=== PATIENT | female | born 1995 | race Caucasian/White ===

== ENCOUNTER 2017-03-07 08:38 | Day surgery (SDC) | payer BC ==
[~2017-03-07] VITALS: Ht 165.1 cm; Wt 43.0 kg
[2017-03-07] VITALS (18 sets, daily range): BP systolic 75–107; BP diastolic 40–66; PULSE 60–100; RESP 14–31; Ht 165.1 cm; Wt 43.0 kg
[~2017-03-07 08:38] MED LIST: DIPH12.561 PO
[2017-03-07] MEDS ORDERED: MIDAZOLAM 1 MG/ML 2 ML INJ ONE (10:43)
[2017-03-07] MEDS ORDERED: PROPOFOL 20 ML ONE ×2 (11:00)
[2017-03-07] MEDS ORDERED: LIDOCAINE 2% (SDV) 5 ML INJ ONE ×2 (11:00)
[2017-03-07] MEDS ORDERED: FAMOTIDINE 20 MG INJ IV SCH (11:00)
[2017-03-07] MEDS ORDERED: METOCLOPRAMIDE 10 MG INJ ONE (11:01)
--- NOTE | 2017-03-07 11:41 | GILP ---
DATE OF PROCEDURE: Kathleen Bonilla is a patient with chronic abdominal pain, chronic vomiting, nausea. Has been hospitali zed in the past for that with many emergency room visits for her symptoms and when she was off the m etoclopramide for a few days she would start to throw up again. This is ____ status of her esophage al issue and condition in her stomach. She also has early satiety and poor weight gain and currentl y weighs on 95 pounds at this age. PREOPERATIVE DIAGNOSES: 1. Poor weight gain. 2. Chronic epigastric pain. 3. Chronic nausea and vomiting despite medication. POSTOPERATIVE DIAGNOSES: 1. Hiatal hernia. 2. Esophageal ulcer. 3. Poor weight gain. DESCRIPTION OF PROCEDURE: Anesthesia was required because of her high anxiety. Then, we went ahead and started the procedure after anesthesia was given. The pediatric upper scope was passed through the oropharyngeal area under direct vision into the distal esophagus. EG junction was wide open. E sophageal ulcer was noted. The ____ protrusion of gastric papilla into the distal esophagus was see n. Like in the past, she also has a lot of white patches or plaques in her distal esophagus. The s tomach appeared to be normal. Pylorus was not exactly that tight. When I went to the duodenum, she had a duodenal ulcer-like lesion at the junction between the bulb and the second part of the duoden um. Biopsies were taken near this area. When I came back up to the stomach and retroflexed the scop e, esophageal mucosa was seen bulging into the cardia of the stomach. The EG junction was patulous. I came back up into the distal esophagus and did biopsy above the Z-line. Hiatal hernia was also s een intermittently. PLAN: For the patient is to: 1. Start her back on all her medications including metoclopramide. Potential side effects of metoc lopramide has been discussed in the past and the patient did not appear to have any complications fr om this. We ended up giving her a dose of metoclopramide before she went to recovery and the H2 blo cker will also be given in the recovery room. 2. ____ biopsy. 3. I will discuss all this with the patient and her mother. Dictated By: BUTCH HANSEN/DOUGLAS Conf#: [id number] [facility]#: [id number]
== END 2017-03-07 12:37 | disposition home or self-care (01) ==
LOC: SDS 08:38
PROVIDERS: ATTEND Specialist
DX: K44.9 Diaphragmatic hernia without obstruction or gangrene (principal); K22.10 Ulcer of esophagus without bleeding
CPT/HCPCS: 43239; 88305; J2250; J2765; Z7512; Z7610

== ENCOUNTER 2017-07-03 13:46 | Emergency (ER) | payer SELFPAY ==
[~2017-07-03] VITALS: Ht 152.4 cm; Wt 42.0 kg
[2017-07-03 13:49] VITALS: Ht 152.4 cm; Wt 42.0 kg
== END 2017-07-03 15:05 | disposition left against medical advice (07) ==
LOC: FTE 13:46
DX: Z53.21 Procedure and treatment not carried out due to patient leaving prior to being seen by health care provider (principal)

== ENCOUNTER 2018-03-24 16:10 | Emergency (ER) | END 2018-03-24 22:04 | disposition home or self-care (01) ==

== ENCOUNTER 2018-03-25 17:17 | Emergency (ER) | END 2018-03-25 21:10 | disposition home or self-care (01) ==

== ENCOUNTER 2018-04-09 13:46 | Emergency (ER) | END 2018-04-09 18:11 | disposition home or self-care (01) ==

== ENCOUNTER 2018-07-09 09:05 | Day surgery (SDC) | END 2018-07-09 11:25 | disposition home or self-care (01) ==

== ENCOUNTER 2018-08-22 16:33 | Emergency (ER) | END 2018-08-22 19:21 | disposition home or self-care (01) ==

== ENCOUNTER 2018-08-24 14:51 | Emergency (ER) | END 2018-08-24 16:49 | disposition home or self-care (01) ==

== ENCOUNTER 2018-09-06 21:22 | Inpatient (IN) | END 2018-09-10 17:16 | disposition home or self-care (01) | DRG 392 ==

== ENCOUNTER 2018-10-06 14:46 | Emergency (ER) | END 2018-10-06 17:55 | disposition home or self-care (01) ==

== ENCOUNTER 2019-06-29 07:19 | Day surgery (SDC) | payer BC ==
[~2019-06-29] VITALS: Ht 167.6 cm; Wt 41.2 kg
[~2019-06-29 07:19] MED LIST changes: +ACET325T33 PO; +AMIT10TA6 PO; +AMOX500C2 PO; +CLAR500T PO; +DEPO-PROVERA; -DIPH12.561 PO; +FAMO20TA18 PO; +METR500T PO; +ONDA4TAB14 PO; +PANT40TA4 PO; +RANI150T5 PO; +TRAM50TA2 PO
[2019-06-29 07:49] VITALS: Ht 167.6 cm; Wt 41.2 kg
[2019-06-29 08:10] VITALS: BP 109/62; PULSE 73; RESP 15
[2019-06-29] MEDS ORDERED: LIDOCAINE 2% (SDV) 5 ML INJ ONE (08:12)
[2019-06-29] MEDS ORDERED: PROPOFOL 40 ML ONE (08:12)
[2019-06-29 09:20] VITALS: BP 113/73; PULSE 66; RESP 18
== END 2019-06-29 09:23 | disposition home or self-care (01) ==
LOC: GIL 07:19
PROVIDERS: ATTEND Internal Medicine Gastroenterology
DX: D12.8 Benign neoplasm of rectum (principal)
CPT/HCPCS: 45380; 84703; Z7610; 88305

== ENCOUNTER 2019-07-05 18:55 | Emergency (ER) | payer BC ==
[~2019-07-05] VITALS: Ht 167.6 cm; Wt 41.1 kg
[~2019-07-05 18:55] MED LIST changes: -ACET325T33 PO; -AMIT10TA6 PO; -AMOX500C2 PO; -CLAR500T PO; +ETHI1TAB22 ORAL; -FAMO20TA18 PO; +IBUP-1542 PO; +KETO10TA ORAL; +LOPE-123 PO; +METO10TA92 PO; -METR500T PO; +NAPR-985 PO; +ONDA4TAB14 ORAL; -PANT40TA4 PO; -RANI150T5 PO; -TRAM50TA2 PO
[2019-07-05 19:00] VITALS: PULSE 112; Ht 167.6 cm; Wt 41.1 kg
[2019-07-05] MEDS ORDERED: KETOROLAC 30 MG INJ IV STA (19:51)
[2019-07-05] MEDS ORDERED: SOD CHLORIDE 0.9% 1,000 ML IV ONE (20:00)
[2019-07-05] MEDS ORDERED: ONDANSETRON (ODT) 4 MG TAB ODT STA (20:27)
[2019-07-05] MEDS ORDERED: LIDOCAINE/MYLANTA 40 ML BTL PO ONE (20:30)
[2019-07-05] MEDS ORDERED: KETOROLAC 30 MG INJ IM STA ×2 (21:51→23:39)
[2019-07-05] MEDS ORDERED: ACETAMINOPHEN 325 MG TAB PO ONE (22:00)
[2019-07-05] MEDS ORDERED: ONDANSETRON 4 MG INJ IV STA (23:51)
[2019-07-06 00:40] VITALS: BP 118/73; RESP 18
== END 2019-07-06 00:53 | disposition home or self-care (01) ==
LOC: FTE 18:55
DX: N80.9 Endometriosis, unspecified (principal)
CPT/HCPCS: 51701; 76856; 80053; 81001; 81025; 85025; 96361; 96372; 96374; 99285; J1885; J2405; J7030; Z7610; A4310

== ENCOUNTER 2019-08-25 12:18 | Emergency (ER) | payer BC ==
[~2019-08-25] VITALS: Wt 52.0 kg
[~2019-08-25 12:18] MED LIST changes: -ETHI1TAB22 ORAL; -KETO10TA ORAL; -LOPE-123 PO; -ONDA4TAB14 ORAL
[2019-08-25] MEDS ORDERED: ONDANSETRON 4 MG INJ IV STA (13:37)
[2019-08-25] MEDS ORDERED: KETOROLAC 30 MG INJ IV STA (13:37)
[2019-08-25] MEDS ORDERED: SOD CHLORIDE 0.9% 1,000 ML IV STA (13:37)
[2019-08-25] MEDS ORDERED: DICYCLOMINE 20 MG INJ IM ONE (14:00)
[2019-08-25] MEDS ORDERED: IOHEXOL 300MG/ML 150 ML BTL ONE (16:45)
[2019-08-25] MEDS ORDERED: SOD CHLORIDE 0.9% 100 ML ONE (16:45)
[2019-08-25] MEDS ORDERED: morphine 2 MG INJ IV STA (17:24)
[2019-08-25] MEDS ORDERED: METOCLOPRAMIDE 10 MG INJ IV ONE (17:30)
[2019-08-25] MEDS ORDERED: HALOPERIDOL 5 MG INJ IV ONE (18:30)
[2019-08-25] MEDS ORDERED: HALOPERIDOL 5 MG INJ IM ONE (18:30)
[2019-08-25 19:36] VITALS: BP 110/63; PULSE 59; RESP 17
== END 2019-08-25 19:37 | disposition home or self-care (01) ==
LOC: FTE 12:18
DX: D72.829 Elevated white blood cell count, unspecified (principal); R10.84 Generalized abdominal pain
CPT/HCPCS: 36415; 74177; 80053; 81001; 83690; 84703; 85025; 96361; 96372; 96374; 96375; 99285; J0500; J1630; J1885; J2270; J2405; J2765; J7030; Q9967; Z7610